=== PATIENT | female | born 1965 | race American Indian/Alaskan Native ===

== ENCOUNTER 2017-10-13 06:43 | Day surgery (SDC) | payer OTHER ==
[2017-10-13] MEDS ORDERED: Lactated Ringer's 1,000 ML IV ONE (08:15)
[2017-10-13] MEDS ORDERED: Propofol 10 mg/ml Inj (20 ML) ONE (08:17)
--- NOTE | 2017-10-13 08:21 | CP.SDSHP ---
Same Day Surgery H & P - History Proposed Procedure: EGD Pre-Op Diagnosis: SEE NOTES - Previous Medical/Surgical History Cardiac: Hypertension, ASHD/CAD Endocrine/Metabolic: Thyroid Disease, Diabetes, Other Misc: Other Pain: 4.Moderate Pain - Allergies Allergies: Allergies No Known Allergies Allergy (Verified 10/13/17 07:17) - Physical Exam General Appearance: N Vital Signs: Vital Signs 10/13/17 07:10 Temperature 97.1 F L Pulse Rate 57 L Respiratory 19 Rate Blood Pressure 134/72 O2 Sat by Pulse 100 Oximetry Mental Status: Alert & Oriented x3 Neuro: WNL Heart: Other Lungs: WNL GI: Other - {Optional Preform as Required} Breast: WNL Abdomen: Other Rectal: Other Integument: WNL : WNL Ortho: Other ENT: WNL - Impression Pt. Evaluated Today:Candidate for Anesthesia & Procedure: Yes - Date & Time Time: 08:20 Short Stay Discharge - Short Stay Discharge Admitting Diagnosis/Reason for Visit: DYSPEPSIA, ABDOMINAL PAIN Disposition: HOME/ ROUTINE Referrals: Pelon Fernández MD [Primary Care Provider] -
[2017-10-13] MEDS ORDERED: Belladonna-Phenobarbital PO STA (08:26)
[2017-10-13 08:47] VITALS: TEMP 98.1
[2017-10-13] MEDS ORDERED: Sucralfate 1 gm/10 ml Oral Susp UD PO ONE (09:00)
[2017-10-13 11:36] VITALS: O2SAT 100
[2017-10-13 11:40] VITALS: BP 135/77; PULSE 66; RESP 12
== END 2017-10-13 10:30 | disposition home or self-care (01) ==
LOC: C.ENDO 06:43
PROVIDERS: ATTEND Specialist
DX: K29.70 Gastritis, unspecified, without bleeding (principal); E11.9 Type 2 diabetes mellitus without complications; I10 Essential (primary) hypertension; I25.10 Atherosclerotic heart disease of native coronary artery without angina pectoris; K21.0 Gastro-esophageal reflux disease with esophagitis; K44.9 Diaphragmatic hernia without obstruction or gangrene; K30 Functional dyspepsia
CPT/HCPCS: 43239; 82948; 88305; 88342; J2001; J2704; J7120